=== PATIENT | female | born 1950 | race Caucasian/White ===

== ENCOUNTER 2020-04-16 22:15 | Inpatient (IN) | payer MEDICARE, OTHER ==
[~2020-04-16] VITALS: Ht 157.5 cm; Wt 76.8 kg
[2020-04-16] MEDS ORDERED: ASPI81TA31 PO (22:27)
[2020-04-16] MEDS ORDERED: ENAL20TA18 PO (22:27)
[2020-04-16] MEDS ORDERED: CALC-17 PO (22:27)
[2020-04-16] MEDS ORDERED: PANT40TA2 PO (22:31)
[2020-04-16] MEDS ORDERED: FENO160T PO (22:31)
[2020-04-16] MEDS ORDERED: METF-440 PO (22:31)
[2020-04-16] MEDS ORDERED: GUAI10LI PO (22:31)
[2020-04-16] MEDS ORDERED: [UNRECOGNIZED DRUG - CODE] PO (22:31)
[2020-04-16] MEDS ORDERED: ATOR40TA PO (22:31)
[2020-04-16] MEDS ORDERED: NAPR375T PO (22:31)
[2020-04-16] MEDS ORDERED: ONDANSETRON 4 MG/2 ML VIAL IV ONE (22:45)
--- NOTE | 2020-04-16 22:45 | NUR ---
Dr. Souleymane Alatorre at bedside for MSE.
[2020-04-16] MEDS ORDERED: ONDANSETRON 4 MG/2 ML VIAL ONE (22:55)
--- NOTE | 2020-04-16 23:00 | NUR ---
Xray at bedside.
[2020-04-16 23:02] LABS: BASOPHILS % (AUTO) 0.1 % (0.0-2.0); EOSINOPHILS % (AUTO) 0.2 % (0.0-7.0); HEMATOCRIT 26.7 % (31.2-41.9); HEMOGLOBIN 9.2 g/dL (10.9-14.3); LYMPHOCYTES # (AUTO) 0.7 K/uL (20.0-40.0); LYMPHOCYTES % (AUTO) 11.4 % (20.5-51.5); MEAN CORPUSCULAR HEMOGLOBIN 27.4 uug (24.7-32.8); MEAN CORPUSCULAR HGB CONC 35 g/dL (32.3-35.6); MEAN CORPUSCULAR VOLUME 79.6 fL (75.5-95.3); MONOCYTES # (AUTO) 0.6 K/uL (2.0-10.0); MONOCYTES % (AUTO) 9.6 % (0.0-11.0); NEUTROPHILS # (AUTO) 4.9 K/uL (1.8-8.9); NEUTROPHILS % (AUTO) 78.7 % (38.5-71.5); PLATELET COUNT (AUTO) 256 K/uL (179-408); RED BLOOD CELL COUNT(AUTO) 3.36 MIL/uL (3.63-4.92); WHITE BLOOD COUNT (AUTO) 6.2 K/uL (3.8-11.8)
--- NOTE | 2020-04-16 23:10 | NUR ---
Pt provided urine sample, sent to lab.
[2020-04-16 23:27] LABS: POTASSIUM 5.2 mmol/L (3.5-5.1)
[2020-04-16 23:33] LABS: BILIRUBIN,DIRECT 0.3 mg/dL (0.0-0.2); BILIRUBIN,TOTAL 0.6 mg/dL (0.2-1.0); TOTAL PROTEIN, SERUM 6.5 g/dL (6.4-8.2)
[2020-04-16 23:40] LABS: *BILIRUBIN,URIN NEGATIVE (NEGATIVE); *BLOOD, URINE 3+ (NEGATIVE); *COLOR,URINE YELLOW (YELLOW); *KETONES,URINE NEGATIVE (NEGATIVE); *UROBILINOGEN,URINE 0.2 E.U./dl (NORMAL); LEUKOCYTE ESTERASE ,URINE NEGATIVE (NEGATIVE); NITRITE, URINE NEGATIVE (NEGATIVE); UGLUCOSE NEGATIVE (NEGATIVE)
[2020-04-16] MEDS ORDERED: IV NORMAL SALINE 1000 ML BAG IV ONE (23:45)
[2020-04-16 23:50] LABS: *CLARITY,URINE HAZY (CLEAR)
[2020-04-16 23:55] LABS: RBC,URINE 0-3 /HPF (0-3); WBC,URINE 0-3 /HPF (0-3)
[2020-04-16 23:56] LABS: BACTERIA,URINE MANY /HPF (NONE SEEN); SQUAMOUS EPITHELIAL CELL,UR FEW /HPF (NONE SEEN)
[2020-04-17] MEDS ORDERED: ENOXAPARIN SODIUM 80 MG/0.8 ML DISP.SYRIN SQ ONE
[2020-04-17] MEDS ORDERED: ALBUMIN HUMAN 25% (12.5 GM/50 ML ) BOTTLE IV ONE
[2020-04-17] MEDS ORDERED: ASPIRIN 81 MG TAB.CHEW PO ONE
--- NOTE | 2020-04-17 00:06 | NUR ---
Called [facility] to page Dr. Sumner.
[2020-04-17] MEDS ORDERED: ASPIRIN 325 MG TABLET ONE (00:16)
--- NOTE | 2020-04-17 00:30 | NUR ---
Dr. Souleymane Alatorre on panel call with Dr. Sumner. Patient accepted for admission to [facility], diagnosis: heart failure.
[2020-04-17] MEDS ORDERED: GUAIFENESIN PO SCH (00:45)
[2020-04-17] MEDS ORDERED: DEXAMETHASONE SOD PHOSPHATE 4 MG INJ IV ONE (00:45)
[2020-04-17] MEDS ORDERED: GUAIFENESIN/DEXTROMETHORPHAN 5 ML UDC PO PRN (00:45)
[2020-04-17] MEDS ORDERED: FUROSEMIDE 40 MG/4 ML VIAL IV ONE ×2 (00:45→04:45)
[2020-04-17] MEDS ORDERED: [UNRECOGNIZED DRUG - OTHER] PO SCH (00:45)
[2020-04-17] MEDS ORDERED: Z GUARD REMEDY PASTE 57 GM TUBE TOP PRN (00:45)
[2020-04-17] MEDS ORDERED: HYDROCODONE/APAP 5-325MG TABLET PO PRN (00:45)
[2020-04-17] MEDS ORDERED: ONDANSETRON 4 MG/2 ML VIAL IV PRN (00:45)
[2020-04-17] MEDS ORDERED: CODEINE PHOSPHATE PO SCH (00:45)
[2020-04-17] MEDS ORDERED: MAGNESIUM HYDROXIDE 30 ML LIQUID UDC PO PRN (00:45)
--- NOTE | 2020-04-17 02:11 | NUR ---
Report given to Lashawn VALERO Tele.
--- NOTE | 2020-04-17 03:50 | NUR ---
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
--- NOTE | 2020-04-17 04:00 | NUR ---
Patient brought to Tele unit 2nd floor from ER via wheelchair accompanied by Staff nurse.Patient alert x4.Dx covid 19 r/o.Secondary dx.CHF and Nstemi. Patient is Danish speaking .On Ra saturating at 94%.Denies SOB and pain.Ambulates to bathroom,Voided well .Had BM yesterday per patient.Skin is intact.IV on Right FA 20 g patent and intact.Lasix 40 mg wasn't given at 0045 in ER .Lasix 40 mg IVP administered late.Online [employer] made aware. Oriented patient to unit.Safety measures in place and call light with in reach.Will continue to monitor.
[2020-04-17 04:20] VITALS: BP 142/75
[2020-04-17 08:13] LABS: BASOPHILS % (AUTO) 0.1 % (0.0-2.0); HEMATOCRIT 25.7 % (31.2-41.9); HEMOGLOBIN 8.8 g/dL (10.9-14.3); LYMPHOCYTES # (AUTO) 0.2 K/uL (20.0-40.0); LYMPHOCYTES % (AUTO) 6.1 % (20.5-51.5); MEAN CORPUSCULAR HEMOGLOBIN 27.2 uug (24.7-32.8); MEAN CORPUSCULAR HGB CONC 34 g/dL (32.3-35.6); MEAN CORPUSCULAR VOLUME 79.3 fL (75.5-95.3); MONOCYTES # (AUTO) 0.1 K/uL (2.0-10.0); NEUTROPHILS # (AUTO) 3.4 K/uL (1.8-8.9); NEUTROPHILS % (AUTO) 91.8 % (38.5-71.5); PLATELET COUNT (AUTO) 229 K/uL (179-408); RED BLOOD CELL COUNT(AUTO) 3.24 MIL/uL (3.63-4.92); WHITE BLOOD COUNT (AUTO) 3.7 K/uL (3.8-11.8)
[2020-04-17 08:27] LABS: MAGNESIUM 1.6 mg/dL (1.8-2.4); POTASSIUM 5.8 mmol/L (3.5-5.1)
[2020-04-17] MEDS ORDERED: ENALAPRIL 10 MG TABLET PO SCH ×2 (09:00)
[2020-04-17] MEDS ORDERED: METFORMIN HCL 500 MG TABLET PO SCH ×2 (09:00)
[2020-04-17] MEDS: CALCIUM CARB/VITAMIN D 500MG-200UNITS TABLET PO SCH (09:13)
[2020-04-17] MEDS: ZINC SULFATE 220 MG CAPSULE PO SCH ×2 (09:13→17:48)
[2020-04-17] MEDS: CHOLECALCIFEROL 1,000 UNIT TABLET PO SCH (09:13)
[2020-04-17] MEDS: PANTOPRAZOLE SODIUM 40 MG TABLET.DR PO SCH (09:13)
[2020-04-17] MEDS: ASPIRIN 81 MG TAB.CHEW PO SCH (09:13)
[2020-04-17] MEDS ORDERED: DEXTROSE 50% 50 ML DISP.SYRIN IV PRN (10:15)
[2020-04-17] MEDS ORDERED: MAGNESIUM SULFATE/D5W 100 ML IV SCH (11:00)
[2020-04-17 11:14] VITALS: BP 133/79
[2020-04-17] MEDS: BLOOD SUGAR DIAGNOSTIC 1 EACH STRIP VI SCH ×3 (11:30→20:29)
[2020-04-17 15:06] VITALS: BP 116/67
[2020-04-17] MEDS: CEFTRIAXONE 1 G in IV DEXTROSE 5% 50 ML IV SCH (15:58)
[2020-04-17] MEDS: AZITHROMYCIN IV 500 MG in IV DEXTROSE 5% 250 ML IV SCH (16:22)
[2020-04-17] MEDS: FUROSEMIDE 40 MG/4 ML VIAL IV SCH ×2 (17:48→20:07)
[2020-04-17] MEDS: INSULIN REGULAR, HUMAN 300 UNIT/3 ML VIAL SQ PRN (18:01)
--- NOTE | 2020-04-17 19:30 | NUR ---
Pt received in bed, resting and alert. Denies being short of breath, pt is on RA sating at 98%. SR on monitor. No acute distress noted. Bed is locked and in lowest position. Call light is within reach. No other issues or concerns at this time.
[2020-04-17 20:03] VITALS: BP 142/74
[2020-04-17] MEDS: MELATONIN 3 MG TABLET PO SCH (20:07)
[2020-04-17] MEDS: ATORVASTATIN 40 MG TABLET PO SCH (20:07)
[2020-04-17] MEDS ORDERED: FENOFIBRATE NANOCRYSTALLIZED 145 MG TABLET PO SCH ×2 (21:00)
[2020-04-18 00:03] VITALS: BP 135/73
[2020-04-18 04:03] VITALS: BP 128/92
[2020-04-18] MEDS: PANTOPRAZOLE SODIUM 40 MG TABLET.DR PO SCH (06:24)
[2020-04-18] MEDS: ACETAMINOPHEN 325 MG TABLET PO PRN (06:31)
[2020-04-18] MEDS: BLOOD SUGAR DIAGNOSTIC 1 EACH STRIP VI SCH ×4 (06:31→21:02)
[2020-04-18 07:03] LABS: BASOPHILS % (AUTO) 0.2 % (0.0-2.0); EOSINOPHILS % (AUTO) 0.1 % (0.0-7.0); HEMATOCRIT 25.4 % (31.2-41.9); LYMPHOCYTES # (AUTO) 0.8 K/uL (20.0-40.0); MEAN CORPUSCULAR HEMOGLOBIN 28.1 uug (24.7-32.8); MEAN CORPUSCULAR HGB CONC 36 g/dL (32.3-35.6); MONOCYTES # (AUTO) 0.9 K/uL (2.0-10.0); MONOCYTES % (AUTO) 13.8 % (0.0-11.0); NEUTROPHILS # (AUTO) 4.7 K/uL (1.8-8.9); NEUTROPHILS % (AUTO) 72.9 % (38.5-71.5); PLATELET COUNT (AUTO) 287 K/uL (179-408); RED BLOOD CELL COUNT(AUTO) 3.22 MIL/uL (3.63-4.92); WHITE BLOOD COUNT (AUTO) 6.5 K/uL (3.8-11.8)
[2020-04-18 07:24] LABS: BILIRUBIN,TOTAL 0.7 mg/dL (0.2-1.0); MAGNESIUM 1.9 mg/dL (1.8-2.4); POTASSIUM 4.8 mmol/L (3.5-5.1); TOTAL PROTEIN, SERUM 6.4 g/dL (6.4-8.2)
[2020-04-18] MEDS: FUROSEMIDE 40 MG/4 ML VIAL IV SCH ×2 (08:50→21:08)
[2020-04-18] MEDS: ZINC SULFATE 220 MG CAPSULE PO SCH ×2 (08:51→17:28)
[2020-04-18] MEDS: DEXAMETHASONE SOD PHOSPHATE 4 MG INJ IV SCH (08:51)
[2020-04-18] MEDS: ASPIRIN 81 MG TAB.CHEW PO SCH (08:51)
[2020-04-18] MEDS: CHOLECALCIFEROL 1,000 UNIT TABLET PO SCH (08:51)
[2020-04-18] MEDS: CALCIUM CARB/VITAMIN D 500MG-200UNITS TABLET PO SCH (08:52)
[2020-04-18] MEDS: INSULIN REGULAR, HUMAN 300 UNIT/3 ML VIAL SQ PRN ×2 (12:16→18:12)
[2020-04-18 12:59] VITALS: BP 143/77
--- NOTE | 2020-04-18 15:01 | NUR ---
Just received PCR results from Luci from lab. Patient's PCR results are negative. Will make MD aware and continue to monitor.
[2020-04-18] MEDS: CEFTRIAXONE 1 G in IV DEXTROSE 5% 50 ML IV SCH (15:47)
[2020-04-18 16:05] LABS: LYMPHOCYTES % (MANUAL) 15 % (20-40); NEUTROPHILS % (MANUAL) 70 % (42-75)
[2020-04-18 16:06] LABS: MONOCYTES % (MANUAL) 15 % (2-10)
[2020-04-18 16:42] VITALS: BP 129/72
[2020-04-18] MEDS: AZITHROMYCIN IV 500 MG in IV DEXTROSE 5% 250 ML IV SCH (17:28)
[2020-04-18] MEDS ORDERED: FUROSEMIDE 40 MG/4 ML VIAL IV ONE (17:35)
[2020-04-18] MEDS: CARVEDILOL 3.125 MG TABLET PO SCH (18:14)
--- NOTE | 2020-04-18 18:52 | NUR ---
Received patient in bed awake alert and oriented times 4. Patient is under isolation pending PCR results. No sign of distress noted. Safety precautions are in place. Will continue to monitor.
[2020-04-18 20:00] VITALS: BP 128/57
--- NOTE | 2020-04-18 20:15 | NUR ---
RECEIVED PATIENT AWAKE IN BED. A/O X4. C/O PAIN AROUND IV SITE. IV INFILTRATED AND RED. REMOVED. NEW IV STARTED TO LEFT FA #20 GAUGE. ON TELE SR. DENIES ANY OTHER PAIN OR DISCOMFORT. NO RESP. DISTRESS NOTED. ON RA. VS WNL. CALL LIGHT IN REACH. ALL NEEDS ATTENDED, WILL CONTINUE TO MONITOR AND ASSESS.
[2020-04-18] MEDS: ENOXAPARIN SODIUM 30 MG/0.3 ML DISP.SYRIN SUBCUT SCH (21:06)
[2020-04-18] MEDS: MELATONIN 3 MG TABLET PO SCH (21:07)
[2020-04-18] MEDS: ATORVASTATIN 40 MG TABLET PO SCH (21:07)
[2020-04-19 00:55] VITALS: BP 128/61
[2020-04-19 04:00] VITALS: BP 128/74
[2020-04-19 05:48] LABS: BASOPHILS % (AUTO) 0.1 % (0.0-2.0); EOSINOPHILS % (AUTO) 0.2 % (0.0-7.0); HEMATOCRIT 24.1 % (31.2-41.9); HEMOGLOBIN 8.3 g/dL (10.9-14.3); LYMPHOCYTES # (AUTO) 0.7 K/uL (20.0-40.0); LYMPHOCYTES % (AUTO) 13.5 % (20.5-51.5); MEAN CORPUSCULAR HEMOGLOBIN 27.2 uug (24.7-32.8); MEAN CORPUSCULAR HGB CONC 34 g/dL (32.3-35.6); MEAN CORPUSCULAR VOLUME 79.3 fL (75.5-95.3); MONOCYTES # (AUTO) 0.5 K/uL (2.0-10.0); MONOCYTES % (AUTO) 10.8 % (0.0-11.0); NEUTROPHILS # (AUTO) 3.7 K/uL (1.8-8.9); NEUTROPHILS % (AUTO) 75.4 % (38.5-71.5); PLATELET COUNT (AUTO) 262 K/uL (179-408); RED BLOOD CELL COUNT(AUTO) 3.04 MIL/uL (3.63-4.92); WHITE BLOOD COUNT (AUTO) 4.9 K/uL (3.8-11.8)
[2020-04-19 05:55] LABS: CREATININE 1.7 mg/dL (0.6-1.3); POTASSIUM 4.6 mmol/L (3.5-5.1)
[2020-04-19] MEDS: PANTOPRAZOLE SODIUM 40 MG TABLET.DR PO SCH (06:05)
[2020-04-19] MEDS: BLOOD SUGAR DIAGNOSTIC 1 EACH STRIP VI SCH ×4 (06:28→21:01)
--- NOTE | 2020-04-19 06:29 | NUR ---
PATIENT AWAKE IN BED. SLEPT WELL. ON TELE SR. VS WNL. CALL LIGHT IN REACH. ALL NEEDS ATTENDED. WILL CONTINUE TO MONITOR AND ASSESS.
--- NOTE | 2020-04-19 07:30 | NUR ---
Received patient in bed awake alert and oriented times 4. Patient PCR results came back negative but still in isolation because of inflammatory markers. Will clear it with TEMPORARY ADMINISTRATIVE ASSISTANT. No sign of distress noted. Patient denies any pain. Safety precautions are in place. Will continue to monitor.
[2020-04-19 07:35] LABS: THYROID STIMULATING HORMONE 0.397 mIU/mL (0.358-3.740)
[2020-04-19 08:50] LABS: PHOSPHOROUS 3.8 mg/dL (2.5-4.9); URIC ACID 7.1 mg/dL (2.6-6.0)
[2020-04-19] MEDS: DEXAMETHASONE SOD PHOSPHATE 4 MG INJ IV SCH (09:06)
[2020-04-19] MEDS: ZINC SULFATE 220 MG CAPSULE PO SCH ×2 (09:06→17:10)
[2020-04-19] MEDS: ASPIRIN 81 MG TAB.CHEW PO SCH (09:06)
[2020-04-19] MEDS: FUROSEMIDE 40 MG/4 ML VIAL IV SCH ×2 (09:06→20:44)
[2020-04-19] MEDS: CALCIUM CARB/VITAMIN D 500MG-200UNITS TABLET PO SCH (09:06)
[2020-04-19] MEDS: CHOLECALCIFEROL 1,000 UNIT TABLET PO SCH (09:07)
[2020-04-19] MEDS: CARVEDILOL 3.125 MG TABLET PO SCH ×2 (09:13→18:24)
[2020-04-19 12:28] VITALS: BP 130/71
[2020-04-19] MEDS: INSULIN REGULAR, HUMAN 300 UNIT/3 ML VIAL SQ PRN ×2 (13:25→17:01)
[2020-04-19] MEDS ORDERED: FUROSEMIDE 40 MG/4 ML VIAL IV ONE (14:45)
[2020-04-19] MEDS: CEFTRIAXONE 1 G in IV DEXTROSE 5% 50 ML IV SCH (15:06)
[2020-04-19 16:35] VITALS: BP 120/68
[2020-04-19] MEDS: AZITHROMYCIN IV 500 MG in IV DEXTROSE 5% 250 ML IV SCH (16:45)
--- NOTE | 2020-04-19 19:30 | NUR ---
Pt received in bed, alert and oriented. Denies pain at this time. No SOB or respiratory distress noted, pt is on RA sating at 97%. SR on monitor. Bed is locked and in the lowest position, call light is within reach. No other issues or concerns at this time.
--- NOTE | 2020-04-19 19:43 | NUR ---
Patient is resting in bed. No sign of distress noted. Patient is currently on room air. Gave all medications as ordered. Swabbed patient for PCR Covid test and dropped off at the lab. Safety precautions are in place. Gave report to oncoming nurse to secure a respiratory viral panel. Will endorse to oncoming nurse.
[2020-04-19] MEDS: MELATONIN 3 MG TABLET PO SCH (20:44)
[2020-04-19] MEDS: ATORVASTATIN 40 MG TABLET PO SCH (20:44)
[2020-04-19 20:59] VITALS: BP 140/68
[2020-04-19] MEDS: ENOXAPARIN SODIUM 30 MG/0.3 ML DISP.SYRIN SUBCUT SCH (21:00)
[2020-04-20 00:50] VITALS: BP 115/57
[2020-04-20 04:31] VITALS: BP 125/61
[2020-04-20] MEDS: PANTOPRAZOLE SODIUM 40 MG TABLET.DR PO SCH (06:08)
[2020-04-20] MEDS: BLOOD SUGAR DIAGNOSTIC 1 EACH STRIP VI SCH ×4 (06:31→20:49)
[2020-04-20 06:41] LABS: BASOPHILS % (AUTO) 0.1 % (0.0-2.0); EOSINOPHILS % (AUTO) 0.4 % (0.0-7.0); HEMATOCRIT 25.9 % (31.2-41.9); HEMOGLOBIN 8.7 g/dL (10.9-14.3); LYMPHOCYTES # (AUTO) 0.8 K/uL (20.0-40.0); LYMPHOCYTES % (AUTO) 15.1 % (20.5-51.5); MEAN CORPUSCULAR HGB CONC 34 g/dL (32.3-35.6); MEAN CORPUSCULAR VOLUME 80.4 fL (75.5-95.3); MONOCYTES # (AUTO) 0.6 K/uL (2.0-10.0); MONOCYTES % (AUTO) 10.6 % (0.0-11.0); NEUTROPHILS % (AUTO) 73.8 % (38.5-71.5); PLATELET COUNT (AUTO) 292 K/uL (179-408); RED BLOOD CELL COUNT(AUTO) 3.23 MIL/uL (3.63-4.92); WHITE BLOOD COUNT (AUTO) 5.4 K/uL (3.8-11.8)
--- NOTE | 2020-04-20 06:47 | NUR ---
Pt slept throughout the night with no complaints. On RA sating at 97% and denies SOB or chest pain. Pt does not appear to be in any distress. SR on monitor. Bed is locked and in lowest position, call light is within reach. No other issues or concerns at this time. Will endorse to day shift.
[2020-04-20 06:54] LABS: CREATININE 1.5 mg/dL (0.6-1.3); POTASSIUM 3.9 mmol/L (3.5-5.1)
[2020-04-20] MEDS: ASPIRIN 81 MG TAB.CHEW PO SCH (09:08)
[2020-04-20] MEDS: ZINC SULFATE 220 MG CAPSULE PO SCH ×2 (09:08→16:29)
[2020-04-20] MEDS: CALCIUM CARB/VITAMIN D 500MG-200UNITS TABLET PO SCH (09:08)
[2020-04-20] MEDS: CHOLECALCIFEROL 1,000 UNIT TABLET PO SCH (09:08)
[2020-04-20] MEDS: CARVEDILOL 3.125 MG TABLET PO SCH ×2 (09:11→17:35)
[2020-04-20] MEDS: FUROSEMIDE 40 MG/4 ML VIAL IV SCH (09:12)
[2020-04-20 11:40] VITALS: BP 130/61
[2020-04-20] MEDS: CEFTRIAXONE 1 G in IV DEXTROSE 5% 50 ML IV SCH (15:08)
[2020-04-20 15:50] VITALS: BP 120/64
[2020-04-20] MEDS: AZITHROMYCIN 250 MG TABLET PO SCH (16:30)
[2020-04-20] MEDS: INSULIN REGULAR, HUMAN 300 UNIT/3 ML VIAL SQ PRN (16:34)
[2020-04-20] MEDS ORDERED: BISACODYL 5 MG TABLET.DR PO ONE (17:45)
--- NOTE | 2020-04-20 18:30 | NUR ---
Notified Mary SANDERS for pt has no bm for 4 day. Awaiting for new orders. Prune juice given earlier was not effective.
--- NOTE | 2020-04-20 19:30 | NUR ---
Received patient on bed. AAOx4. In no acute distress. Denies any pain or SOB. O2 sat at 95% on RA. VS WNL. NSR on tele at 65/min. IV site on left FA intact and patent. COVID precaution initiated. Safety measure initiated and call giles within reached. Continue to monitor.
[2020-04-20 20:00] VITALS: BP 135/69
[2020-04-20] MEDS: MELATONIN 3 MG TABLET PO SCH (20:44)
[2020-04-20] MEDS: ATORVASTATIN 40 MG TABLET PO SCH (20:44)
[2020-04-20] MEDS: ENOXAPARIN SODIUM 30 MG/0.3 ML DISP.SYRIN SUBCUT SCH (20:44)
[2020-04-21] VITALS: BP 131/55
--- NOTE | 2020-04-21 02:07 | NUR ---
Lab/[facility] called and reported pt PCR positive for COVID. COVID precaution maintained.
[2020-04-21 04:00] VITALS: BP 138/65
--- NOTE | 2020-04-21 06:07 | NUR ---
No significant event throughout the shift. Denies any pain or SOB. O2 sat at 97% on RA. NSR on tele at 66/min. IV site on left FA remains intact and patent. Needs attended to and met. COVID precaution maintained. Safety measure maintained and call giles within reached. Continue to monitor.
[2020-04-21] MEDS: PANTOPRAZOLE SODIUM 40 MG TABLET.DR PO SCH (06:26)
[2020-04-21] MEDS: ACETAMINOPHEN 325 MG TABLET PO PRN (06:26)
[2020-04-21] MEDS: BLOOD SUGAR DIAGNOSTIC 1 EACH STRIP VI SCH ×4 (06:34→20:18)
[2020-04-21 06:57] LABS: BASOPHILS % (AUTO) 0.4 % (0.0-2.0); EOSINOPHILS # (AUTO) 0.1 K/uL (0.0-0.7); EOSINOPHILS % (AUTO) 1.8 % (0.0-7.0); HEMATOCRIT 28.6 % (31.2-41.9); HEMOGLOBIN 9.5 g/dL (10.9-14.3); LYMPHOCYTES # (AUTO) 1.3 K/uL (20.0-40.0); MEAN CORPUSCULAR HEMOGLOBIN 26.8 uug (24.7-32.8); MEAN CORPUSCULAR HGB CONC 33 g/dL (32.3-35.6); MEAN CORPUSCULAR VOLUME 81.2 fL (75.5-95.3); MONOCYTES # (AUTO) 0.7 K/uL (2.0-10.0); MONOCYTES % (AUTO) 10.3 % (0.0-11.0); NEUTROPHILS # (AUTO) 4.7 K/uL (1.8-8.9); NEUTROPHILS % (AUTO) 68.5 % (38.5-71.5); PLATELET COUNT (AUTO) 362 K/uL (179-408); RED BLOOD CELL COUNT(AUTO) 3.53 MIL/uL (3.63-4.92); WHITE BLOOD COUNT (AUTO) 6.9 K/uL (3.8-11.8)
[2020-04-21 07:26] LABS: CREATININE 1.4 mg/dL (0.6-1.3); POTASSIUM 4.4 mmol/L (3.5-5.1)
--- NOTE | 2020-04-21 08:00 | NUR ---
Received patient this morning awake and conversant. Denies pain or discomfort. On RA spo2 noted 96%. No labored breathing or coughing noted. LFA IV intact and patent. Patient is cooperative. No complaints at this time. Call light within reach. Will continue to monitor.
[2020-04-21] MEDS: CALCIUM CARB/VITAMIN D 500MG-200UNITS TABLET PO SCH (08:28)
[2020-04-21] MEDS: CARVEDILOL 3.125 MG TABLET PO SCH (08:28)
[2020-04-21] MEDS: ZINC SULFATE 220 MG CAPSULE PO SCH ×2 (08:28→17:13)
[2020-04-21] MEDS: DOCUSATE SODIUM 100 MG CAPSULE PO SCH (08:28)
[2020-04-21] MEDS: FUROSEMIDE 40 MG TABLET PO SCH (08:28)
[2020-04-21] MEDS: CHOLECALCIFEROL 1,000 UNIT TABLET PO SCH (08:28)
[2020-04-21] MEDS: ASPIRIN 81 MG TAB.CHEW PO SCH (08:30)
[2020-04-21 12:00] VITALS: BP 150/67
[2020-04-21] MEDS: MAGNESIUM CITRATE 296 ML BOTTLE PO ONE ×2 (13:00→14:36)
[2020-04-21] MEDS ORDERED: MIRALAX 17 GM POWD.PACK PO PRN (13:00)
[2020-04-21] MEDS ORDERED: LOSARTAN POTASSIUM 25 MG TABLET PO SCH (13:30)
[2020-04-21] MEDS ORDERED: LACTULOSE 20 G/30 ML LIQUID UDC PO ONE (14:00)
[2020-04-21] MEDS: CEFTRIAXONE 1 G in IV DEXTROSE 5% 50 ML IV SCH (15:58)
[2020-04-21 16:00] VITALS: BP 138/68
[2020-04-21] MEDS: AZITHROMYCIN 250 MG TABLET PO SCH (17:14)
[2020-04-21] MEDS: CARVEDILOL 6.25 MG TABLET PO SCH (17:20)
[2020-04-21] MEDS ORDERED: CARVEDILOL 3.125 MG TABLET PO SCH (18:00)
--- NOTE | 2020-04-21 18:53 | NUR ---
Patient verbalized no longer constipated as she had a bowel movement this afternoon. Kept comfortable. Needs attended. Patient was appreciative.
[2020-04-21 20:00] VITALS: BP 144/66
[2020-04-21] MEDS: ATORVASTATIN 40 MG TABLET PO SCH (20:08)
[2020-04-21] MEDS: MELATONIN 3 MG TABLET PO SCH (20:08)
[2020-04-21] MEDS: ENOXAPARIN SODIUM 30 MG/0.3 ML DISP.SYRIN SUBCUT SCH (20:10)
[2020-04-21] MEDS: INSULIN REGULAR, HUMAN 300 UNIT/3 ML VIAL SQ PRN (20:21)
[2020-04-22] VITALS: BP 141/65
[2020-04-22 04:00] VITALS: BP 149/69
[2020-04-22] MEDS: PANTOPRAZOLE SODIUM 40 MG TABLET.DR PO SCH (06:20)
[2020-04-22] MEDS: BLOOD SUGAR DIAGNOSTIC 1 EACH STRIP VI SCH ×3 (06:33→17:19)
[2020-04-22 06:51] LABS: BASOPHILS % (AUTO) 0.4 % (0.0-2.0); EOSINOPHILS # (AUTO) 0.2 K/uL (0.0-0.7); EOSINOPHILS % (AUTO) 3.2 % (0.0-7.0); HEMATOCRIT 26.9 % (31.2-41.9); HEMOGLOBIN 9.1 g/dL (10.9-14.3); LYMPHOCYTES # (AUTO) 1.2 K/uL (20.0-40.0); LYMPHOCYTES % (AUTO) 20.1 % (20.5-51.5); MEAN CORPUSCULAR HEMOGLOBIN 27.5 uug (24.7-32.8); MEAN CORPUSCULAR HGB CONC 34 g/dL (32.3-35.6); MEAN CORPUSCULAR VOLUME 81.2 fL (75.5-95.3); MONOCYTES # (AUTO) 0.6 K/uL (2.0-10.0); MONOCYTES % (AUTO) 9.3 % (0.0-11.0); NEUTROPHILS # (AUTO) 4.1 K/uL (1.8-8.9); PLATELET COUNT (AUTO) 334 K/uL (179-408); RED BLOOD CELL COUNT(AUTO) 3.31 MIL/uL (3.63-4.92); WHITE BLOOD COUNT (AUTO) 6.1 K/uL (3.8-11.8)
[2020-04-22 07:08] LABS: CREATININE 1.2 mg/dL (0.6-1.3); PHOSPHOROUS 3.1 mg/dL (2.5-4.9); POTASSIUM 4.4 mmol/L (3.5-5.1)
[2020-04-22 07:51] VITALS: BP 141/70
--- NOTE | 2020-04-22 08:00 | NUR ---
Received awake and alert. Denies pain. Left arm IV intact and patent. On RA O2 saturation 98%. No respiratory distress. Will continue to monitor.
[2020-04-22] MEDS: ZINC SULFATE 220 MG CAPSULE PO SCH (08:27)
[2020-04-22] MEDS: CHOLECALCIFEROL 1,000 UNIT TABLET PO SCH (08:27)
[2020-04-22] MEDS: ASPIRIN 81 MG TAB.CHEW PO SCH (08:27)
[2020-04-22] MEDS: CALCIUM CARB/VITAMIN D 500MG-200UNITS TABLET PO SCH (08:27)
[2020-04-22] MEDS: CARVEDILOL 6.25 MG TABLET PO SCH (08:28)
[2020-04-22] MEDS: DOCUSATE SODIUM 100 MG CAPSULE PO SCH (08:28)
[2020-04-22] MEDS: FUROSEMIDE 40 MG TABLET PO SCH (08:28)
[2020-04-22] MEDS ORDERED: LOSARTAN POTASSIUM 25 MG TABLET PO SCH (09:00)
[2020-04-22 11:40] VITALS: BP 132/67
[2020-04-22] MEDS: ACETAMINOPHEN 325 MG TABLET PO PRN (12:25)
[2020-04-22] MEDS ORDERED: POTA10CA43 PO (14:03)
[2020-04-22] MEDS ORDERED: FURO-151 PO (14:03)
[2020-04-22] MEDS ORDERED: CARV6.25 PO (14:04)
[2020-04-22] MEDS ORDERED: LOSA50TA39 PO (14:04)
[2020-04-22] MEDS ORDERED: ATOR40TA PO (14:05)
[2020-04-22] MEDS ORDERED: ASPI81TA31 PO (14:05)
[2020-04-22 14:30] VITALS: BP 131/54
--- NOTE | 2020-04-22 17:30 | NUR ---
Patient left in stable condition. All medications given as ordered. Patient left with all her discharge paperwork and belongings. Discharge teaching completed. No sign of distress noted. Patient left in private vehicle with daughter.
== END 2020-04-22 17:30 | disposition home health service (06) | DRG 177 ==
LOC: ER 22:15 → TELE 04-17 02:38
PROVIDERS: ADMIT Nurse Practitioner Acute Care; ATTEND Nurse Practitioner Family
DX: U07.1 COVID-19 (principal); J12.82 Pneumonia due to coronavirus disease 2019; N17.0 Acute kidney failure with tubular necrosis; I21.A1 Myocardial infarction type 2; I50.23 Acute on chronic systolic (congestive) heart failure; I13.0 Hypertensive heart and chronic kidney disease with heart failure and stage 1 through stage 4 chronic kidney disease, or unspecified chronic kidney disease; I42.9 Cardiomyopathy, unspecified; E87.1 Hypo-osmolality and hyponatremia; I11.9 Hypertensive heart disease without heart failure; E78.5 Hyperlipidemia, unspecified; N18.9 Chronic kidney disease, unspecified; E87.5 Hyperkalemia; E11.22 Type 2 diabetes mellitus with diabetic chronic kidney disease; D64.9 Anemia, unspecified; I44.7 Left bundle-branch block, unspecified; Z79.84 Long term (current) use of oral hypoglycemic drugs; R06.03 Acute respiratory distress
CPT/HCPCS: 36415; 70030-TC; 71045; 83605; 83615; 83690; 83735; 84100; 84443; 84550; 85025; 85730; 86140; 87040; 87086; 93005; 93307; A4663; G0378; J0456; J0696; J1100; J1650; J1815; J1940; J2405; J3475; J7030; J7060; P9047; Q0144; U0003

== ENCOUNTER 2020-06-17 18:59 | Emergency (ER) | payer MEDICARE, OTHER ==
[~2020-06-17] VITALS: Ht 157.5 cm; Wt 76.7 kg
[~2020-06-17 18:59] MED LIST: ASPI81TA31 PO; ATOR40TA PO; CALC-17 PO; CARV6.25 PO; FENO160T PO; FURO-151 PO; LOSA50TA39 PO; METF-440 PO; POTA10CA43 PO
--- NOTE | 2020-06-17 21:08 | NUR ---
Dr. Quigley at bedside for MSE.
[2020-06-17 21:38] LABS: BASOPHILS % (AUTO) 0.4 % (0.0-2.0); EOSINOPHILS % (AUTO) 0.4 % (0.0-7.0); HEMOGLOBIN 9.9 g/dL (10.9-14.3); LYMPHOCYTES # (AUTO) 1.4 K/uL (20.0-40.0); LYMPHOCYTES % (AUTO) 27.8 % (20.5-51.5); MEAN CORPUSCULAR HEMOGLOBIN 27.6 uug (24.7-32.8); MEAN CORPUSCULAR HGB CONC 33 g/dL (32.3-35.6); MEAN CORPUSCULAR VOLUME 83.4 fL (75.5-95.3); MONOCYTES # (AUTO) 0.5 K/uL (2.0-10.0); NEUTROPHILS % (AUTO) 61.4 % (38.5-71.5); PLATELET COUNT (AUTO) 236 K/uL (179-408); RED BLOOD CELL COUNT(AUTO) 3.59 MIL/uL (3.63-4.92); WHITE BLOOD COUNT (AUTO) 4.9 K/uL (3.8-11.8)
[2020-06-17 21:44] LABS: *BILIRUBIN,URIN NEGATIVE (NEGATIVE); *BLOOD, URINE 2+ (NEGATIVE); *CLARITY,URINE CLEAR (CLEAR); *COLOR,URINE YELLOW (YELLOW); *KETONES,URINE NEGATIVE (NEGATIVE); *UROBILINOGEN,URINE 0.2 E.U./dl (NORMAL); LEUKOCYTE ESTERASE ,URINE NEGATIVE (NEGATIVE); NITRITE, URINE NEGATIVE (NEGATIVE); UGLUCOSE NEGATIVE (NEGATIVE)
[2020-06-17 21:47] LABS: CREATININE 0.9 mg/dL (0.6-1.3); POTASSIUM 3.9 mmol/L (3.5-5.1)
[2020-06-17 21:52] LABS: BILIRUBIN,DIRECT 0.2 mg/dL (0.0-0.2); BILIRUBIN,TOTAL 0.6 mg/dL (0.2-1.0)
[2020-06-17 22:38] VITALS: BP 151/90
--- NOTE | 2020-06-17 22:38 | NUR ---
Patient discharged to home in stable condition. Written and verbal after care instructions given. Patient verbalizes understanding of instructions. Stressed follow up or return to ER for worsening s/s.
[2020-06-17 22:54] LABS: BACTERIA,URINE NONE SEEN /HPF (NONE SEEN); RBC,URINE 20-50 /HPF (0-3); SQUAMOUS EPITHELIAL CELL,UR FEW /HPF (NONE SEEN); WBC,URINE 0-3 /HPF (0-3)
== END 2020-06-17 22:38 | disposition home or self-care (01) ==
LOC: ER 19:00
DX: B34.9 Viral infection, unspecified (principal); E78.5 Hyperlipidemia, unspecified; I10 Essential (primary) hypertension; Z79.82 Long term (current) use of aspirin; Z79.899 Other long term (current) drug therapy
CPT/HCPCS: 36415; 71045; 85025; 85651; 87040; A4663